=== PATIENT | female | born 1995 | race Hispanic/Latino ===

== ENCOUNTER 2017-10-26 23:00 | Emergency (ER) | payer OTHER ==
[~2017-10-26] VITALS: Ht 162.6 cm; Wt 56.7 kg
[2017-10-26 23:14] VITALS: BP 113/62
--- NOTE | 2017-10-26 23:24 | ER.PDOC ---
General Chief Complaint: Vaginal Bleed Stated Complaint: <20 WKS PREG,BLEEDING Time seen by MD: 23:23 Source: patient Exam Limitations: no limitations History of Present Illness Initial Comments Bleeding this evening Timing/Duration: this evening Severity/Quality: cramping Location of Pain: abdominal pain Vaginal Bleed: abnormal bleeding LMP (females 10-50): : 2 Para: 1 Test: clinic [facility] [place] History: single partner Associated Symptoms: denies symptoms Allergies: Coded Allergies: No Known Allergies (Unverified , 10/26/17) Past Medical History Medical History: no pertinent history Surgical History: no surgical history LMP (females 10-50): Social History Smoking: non-smoker Alcohol Use: none Drug Use: none Review of Systems Constitutional: no symptoms reported Respiratory: no symptoms reported Cardiovascular: no symptoms reported Gastrointestinal: no symptoms reported Genitourinary: see HPI Musculoskeletal: no symptoms reported All Other Systems: Reviewed and Negative Physical Exam General Appearance: No Apparent Distress, WD/WN EENT: eyes nml inspection, nml ENT inspection, pharynx nml Neck: nml inspection, non-tender Cardiovascular/Respiratory: Regular Rate, Rhythm, No M/R/G, Normal Peripheral Pulses, No JVD, Normal Breath Sounds, No Respiratory Distress Abdomen: Normal Bowel Sounds, Soft, No Organomegaly, No Pulsatile Mass, Tenderness (lower abdomen) Back: nml inspection Extremities: Normal Range of Motion, Non-Tender, Normal Inspection, No Pedal Edema, No Calf Tenderness, Normal Capillary Refill Neurologic/Psychiatric: laborer brush clearing II-XII NML as Tested, No Motor/Sensory Deficits, Alert, Normal Mood/Affect, Oriented x 3 Skin: Normal Color, Warm/Dry Lymphatic: No Adenopathy Results/Orders Results/Orders Laboratory Tests Test 10/26/17 23:25 10/26/17 23:35 White Blood Count 9.1 10^3/uL (4.5-11.0) Red Blood Count 4.38 10^6/uL (4.00-5.20) Hemoglobin 12.0 g/dL (12.0-15.0) Hematocrit 36.1 % (36.0-46.0) Mean Corpuscular Volume 82.4 fL (78-100) Mean Corpuscular Hemoglobin 27.4 pg (26-34) Mean Corpuscular Hemoglobin Concent 33.2 g/dL (33-37) Red Cell Distribution Width 15.1 % (11.5-14.5) Platelet Count 159 10^3/uL (150-400) Mean Platelet Volume 12.1 fL (7.8-11.0) Neutrophils (%) (Auto) 59.3 % (41.0-85.0) Lymphocytes (%) (Auto) 32.3 % (24.0-44.0) Monocytes (%) (Auto) 7.1 % (5.0-12.0) Neutrophils # (Auto) 5.4 10^3/uL (1.8-7.7) Lymphocytes # (Auto) 2.9 10^3/uL (1.0-4.8) Monocytes # (Auto) 0.6 10^3/uL (0.3-0.8) Absolute Immature Granulocyte (auto 0.01 10^3 u/L (0-2) Eosinophils % 1.1 % (0.0-5.0) Basophils % 0.1 % (0.0-0.2) Basophils # 0.0 10^3/uL (0.0-0.1) Eosinophil Count 0.1 10^3/uL (0.0-0.2) Prothrombin Time 9.6 SEC (9.8-11.9) Prothrombin Time INR (Non-Therap) 1.0 Activated Partial Thromboplast Time 26.2 SEC (24.67-30.72) Sodium Level 139 mmol/L (132-145) Potassium Level 3.5 mmol/L (3.6-5.2) Chloride Level 104.0 mmol/L (96-109) Carbon Dioxide Level 23.7 mmol/L (20.0-32) Anion Gap 14.8 Blood Urea Nitrogen 7 mg/dL (7-18) Creatinine 0.50 mg/dL (0.59-1.40) Estimated GFR () 188.5 (>/=60) BUN/Creatinine Ratio 14.0 Glucose Level 90 mg/dL (70-110) Calcium Level 8.7 mg/dL (8.4-10.5) Total Bilirubin 0.1 mg/dL (0.2-1.0) Aspartate Amino Transf (AST/SGOT) 7 U/L (0-35) Alanine Aminotransferase (ALT/SGPT) 21 U/L (12-78) Alkaline Phosphatase 57 U/L (50-136) Total Protein 6.5 g/dL (6.4-8.2) Albumin 3.1 g/dL (3.4-5.0) Globulin 3.4 Human Chorionic Gonadotropin, Quant 73890 mIU/mL Percent Immature Gran (Cell Imm) 0.10 % (0.00-0.50) Urine Collection Type CCMS Urine Color STRAW (YELLOW) Urine Appearance SLIGHTLY HAZY (CLEAR) Urine Bilirubin NEGATIVE MG/DL (NEGATIVE) Urine Ketones NEGATIVE (NEGATIVE) Urine Specific [place] 1.005 (1.005-1.035) Urine pH 7 (5.0-6.0) Urine Protein NEGATIVE (NEGATIVE) Urine Urobilinogen NORMAL (NEGATIVE) Urine Nitrate NEGATIVE (NEGATIVE) Urine Leukocyte Esterase 500/uL 2+ (NEGATIVE) Urine Blood 25 1+ (NEGATIVE) Urine RBC 0-2 RBC/HPF (NONE SEEN) Urine WBC 10-25 WBC/HPF (0-2) Urine Squamous Epithelial Cells MODERATE #/HPF (FEW) Urine Bacteria RARE (NONE SEEN) Urine Yeast RARE Urine Glucose NORMAL (NEGATIVE) Progress Progress Patient told me that bleeding stopped EKG/XRAY/CT/US Utrasound Comments: Single live intrauterine of 15 weeks and 3 days Departure Time of Disposition: 02:14 Disposition: 01 HOME, SELF-CARE Impression: Primary Impression: Vaginal bleeding before 22 weeks gestation Additional Impression: UTI (urinary tract infection) Condition: Stable Referrals: BARRIE SALAZAR [employer] (PCP) PRIMARY CARE PROVIDER Additional Instructions: Pelvic rest Bed rest Macrobid [facility] Duration or Time Spent with Pa: 2 hours Problem Qualifiers Additional Impression: UTI (urinary tract infection) Urinary tract infection type: site unspecified Hematuria presence: with hematuria Qualified Codes: N39.0 - Urinary tract infection, site not specified ; R31.9 - Hematuria, unspecified EDGAR TEJEDA MD Oct 26, 2017 23:24
[2017-10-26 23:31] LABS: BASOPHIL % 0.1 % (0.0-0.2); EOSINOPHIL # 0.1 10^3/uL (0.0-0.2); EOSINOPHIL % 1.1 % (0.0-5.0); LYMPHOCYTES # 2.9 10^3/uL (1.0-4.8); LYMPHOCYTES % 32.3 % (24.0-44.0); MEAN CELL HGB 27.4 pg (26-34); MEAN CELL HGB CONCENTRATION 33.2 g/dL (33-37); MEAN CORP VOLUME 82.4 fL (78-100); MEAN PLATELET VOLUME 12.1 fL (7.8-11.0); MONOCYTES # 0.6 10^3/uL (0.3-0.8); MONOCYTES % 7.1 % (5.0-12.0); NEUTROPHIL # 5.4 10^3/uL (1.8-7.7); NEUTROPHILS % 59.3 % (41.0-85.0); RED CELL DISTRIBUTION WIDTH 15.1 % (11.5-14.5); WHITE BLOOD CELL 9.1 10^3/uL (4.5-11.0)
[2017-10-26 23:53] LABS: APPEARANCE,URINE SLIGHTLY HAZY (CLEAR); BILIRUBIN,URINE NEGATIVE (NEGATIVE); UA COLOR STRAW (YELLOW); UROBILINOGEN,URINE NORMAL (NEGATIVE)
[2017-10-26 23:55] LABS: YEAST,URINE RARE
[2017-10-27 00:09] LABS: CALCIUM 8.7 mg/dL (8.4-10.5); CARBON DIOXIDE 23.7 mmol/L (20.0-32)
--- NOTE | 2017-10-27 00:20 | NUR ---
TONES TONES DETECTED. RUNNING 162-168.
--- NOTE | 2017-10-27 00:51 | NUR ---
US PT TO US AT THIS TIME.
--- NOTE | 2017-10-27 02:02 | DIREP ---
PROCEDURE:US OB LIMITED COMPARISON:None. INDICATIONS:Bleeding in with cramping TECHNIQUE: Transabdominal sonography of the gravid uterus was performed FINDINGS: ESTIMATED WEIGHT:127.04 g HEART RATE:163.76 1/min COMPOSITE ULTRASOUND AGE:15 weeks 3 days CEPHALIC INDEX:73.45 HC/AC:1.13 FL/AC:17.03 FL/HC:15.01 FL/BPD:58.06 ABD CIRCUMFERENCE:9.99 cm, 16 weeks, 0 days BIPARIETAL DIAMETER:2.93 cm, 15 weeks, 2 days HEAD CIRCUMFERENCE:11.33 cm, 15 weeks, 4 days FEMUR LENGTH:1.70 cm, 15 weeks, 0 days OCCIPITAL-FRONTAL DIAMETER:3.99 cm CERVIX LENGTH:3.41 cm POSITION:Breech PLACENTA:Posterior without evidence for previa Survey anatomic evaluation was not performed. CONCLUSION: 1. Single, live, intrauterine gestation with estimated sonographic age of 15 weeks 3 days and MARY of 04/17/2018. The cervix is closed. Dictated by: Elie Lowe MD on 10/27/2017 at 01:58 AM
[2017-10-27] MEDS ORDERED: ROCEPHIN IM IM STA (02:16)
[2017-10-27] MEDS ORDERED: ROCEPHIN ONE (02:22)
[2017-10-27] MEDS ORDERED: LIDOCAINE 1% VIAL ONE (02:22)
[2017-10-27 02:38] VITALS: BP_SYST 113; BP_SYST 115; BP_DIAS 62; BP_DIAS 78
== END 2017-10-27 02:40 | disposition home or self-care (01) ==
LOC: ER 23:00
DX: O46.92 Antepartum hemorrhage, unspecified, second trimester (principal); O23.42 Unspecified infection of urinary tract in pregnancy, second trimester; Z3A.15 15 weeks gestation of pregnancy
CPT/HCPCS: 36415; 76805; 80053; 81000; 84702; 85025; 85610; 85730; 87086; 96372; 99285; J0696; J2001

== ENCOUNTER → 2017-11-20 | Outpatient (CLI) | payer OTHER ==
[2017-11-20 15:16] LABS: BASOPHIL % 0.2 % (0.0-0.2); EOSINOPHIL # 0.1 10^3/uL (0.0-0.2); EOSINOPHIL % 0.7 % (0.0-5.0); HEMOGLOBIN 12.5 g/dL (12.0-15.0); LYMPHOCYTES # 1.9 10^3/uL (1.0-4.8); LYMPHOCYTES % 18.6 % (24.0-44.0); MEAN CELL HGB 27.9 pg (26-34); MEAN CELL HGB CONCENTRATION 32.8 g/dL (33-37); MEAN PLATELET VOLUME 12.5 fL (7.8-11.0); MONOCYTES # 0.6 10^3/uL (0.3-0.8); MONOCYTES % 6.1 % (5.0-12.0); NEUTROPHIL # 7.4 10^3/uL (1.8-7.7); NEUTROPHILS % 74.2 % (41.0-85.0); RED CELL DISTRIBUTION WIDTH 15.1 % (11.5-14.5)
== END | disposition home or self-care (01) ==
LOC: LAB 14:50 → EDSTATUS 16:07
PROVIDERS: ATTEND Nurse Practitioner Women's Health
DX: Z34.82 Encounter for supervision of other normal pregnancy, second trimester (principal); Z3A.18 18 weeks gestation of pregnancy
CPT/HCPCS: 36415; 85025; 86318; 86592; 86762; 86885; 86900; 87086

== ENCOUNTER 2018-01-06 16:19 | Observation (INO) | payer OTHER ==
[~2018-01-06] VITALS: Ht 152.4 cm; Wt 58.1 kg
[2018-01-06] MEDS ORDERED: LACTATED RINGERS 2,000 ML ONE (17:05)
[2018-01-06 17:48] LABS: BILIRUBIN,URINE NEGATIVE (NEGATIVE); UROBILINOGEN,URINE NORMAL (NEGATIVE)
[2018-01-06 18:00] LABS: APPEARANCE,URINE CLOUDY (CLEAR); UA COLOR YELLOW (YELLOW)
[2018-01-06] MEDS ORDERED: LACTATED RINGERS 1,000 ML IV SCH (18:00)
[2018-01-06 20:12] VITALS: BP 99/58
[2018-01-06] MEDS ORDERED: PREN1TAB59 PO (20:16)
== END 2018-01-06 20:20 | disposition home or self-care (01) ==
LOC: ATP 16:19
PROVIDERS: ADMIT Hospitalist; ATTEND Hospitalist
DX: O62.9 Abnormality of forces of labor, unspecified (principal); O26.892 Other specified pregnancy related conditions, second trimester; R10.9 Unspecified abdominal pain; Z3A.27 27 weeks gestation of pregnancy
CPT/HCPCS: 59025; 80307; 81000; 84112; 87086; G0378 ×4; J7120

== ENCOUNTER → 2018-02-25 | Outpatient (CLI) | payer OTHER ==
[~2018-02-25] MED LIST: PREN1TAB59 PO
--- NOTE | 2018-02-25 17:33 | DIREP ---
PROCEDURE:OBSTETRICAL ULTRASOUND, 2nd AND 3rd TRIMESTER TECHNIQUE:Transabdominal ultrasound of the pelvic contents was performed. COMPARISON:[facility], , US OB 2 3TRI DETAILED TRANSABD, 11/20/2017, 04:24 PM. [facility], , US OB LIMITED, 10/27/2017, 00:44 AM. [facility], , US OB 1ST TRI TRANS ABD, 09/26/2017, 02:57 PM. INDICATIONS:SIZE LESS THAN DATES, ADALID, ESTIMATE GROWTH WEIGHT TECHNIQUE: Transabdominal sonography of the gravid uterus was performed FINDINGS: NUMBER:Sandy. POSITION:Cephalic AMNIOTIC FLUID VOLUME:LVP - 3.5 cm PLACENTA:Fundal, with no evidence of placenta previa. CERVIX:Limited transabdominal assessment. HEART RATE:132 bpm BIPARIETAL DIAMETER:8.6 cm (35 W 1 D), 67.5 percentile HEAD CIRCUMFERENCE:30.9 cm (34 W 0 D), 27.2 percentile ABD CIRCUMFERENCE:28.5 cm (32 W 4 D), 15.0 percentile FEMUR LENGTH:6.7 cm (34 W 1 D), 50.3 percentile ESTIMATED WEIGHT:2204 gm (4 lb, 14oz), 48.6 percentile ULTRASOUND GA:34 W 1 D ULTRASOUND MARY:April 07, 2018 CLINICAL GA: 34 W 0 D CLINICAL MARY: April 08, 2018 Survey anatomic evaluation was not performed. CONCLUSION: 1. Single live intrauterine with appropriate interval growth. 2. No anomalies detected on today's examination. 3. biometrics suggest a gestational age of approximately 34 W 1 D, with an Estimated Weight (EFW) of 2204 gm (4 lb, 14oz). Dictated by: LANETTE Physician on 02/25/2018 at 04:51 PM ac
== END | disposition home or self-care (01) ==
LOC: RAD 15:57
PROVIDERS: ATTEND Nurse Practitioner Women's Health
DX: Z34.83 Encounter for supervision of other normal pregnancy, third trimester (principal); Z3A.34 34 weeks gestation of pregnancy
CPT/HCPCS: 76816

== ENCOUNTER → 2018-03-12 | Outpatient (CLI) | payer OTHER | END | disposition home or self-care (01) | LOC: LAB 14:51 | PROVIDERS: ATTEND Nurse Practitioner Women's Health | DX: O23.10 Infections of bladder in pregnancy, unspecified trimester (principal); Z3A.00 Weeks of gestation of pregnancy not specified | CPT/HCPCS: 87086 ==

== ENCOUNTER 2018-03-23 15:32 | Observation (INO) | payer OTHER ==
[~2018-03-23] VITALS: Ht 156.2 cm; Wt 60.3 kg
[2018-03-23 16:05] LABS: BILIRUBIN,URINE NEGATIVE (NEGATIVE); UROBILINOGEN,URINE NORMAL (NEGATIVE)
[2018-03-23 16:07] LABS: APPEARANCE,URINE CLEAR (CLEAR); UA COLOR COLORLESS (YELLOW)
[2018-03-23 18:10] VITALS: BP 125/62
== END 2018-03-23 18:03 | disposition home or self-care (01) ==
LOC: ATP 15:32 → EDPENDDISTM 18:03
PROVIDERS: ADMIT Obstetrics & Gynecology; ATTEND Obstetrics & Gynecology
DX: O62.9 Abnormality of forces of labor, unspecified (principal); O26.893 Other specified pregnancy related conditions, third trimester; N00-N99 Diseases of the genitourinary system; R10.2 Pelvic and perineal pain; Z3A.37 37 weeks gestation of pregnancy
CPT/HCPCS: 59025; 81000; 84112; 87086; G0378 ×3

== ENCOUNTER 2018-04-08 07:56 | Inpatient (IN) | payer OTHER ==
[~2018-04-08] VITALS: Ht 154.9 cm; Wt 61.2 kg
--- NOTE | 2018-04-08 08:33 | PCM.HP ---
OB - Chief Complaint & HPI Date of Admission: Date of Admission: Apr 08, 2018 at 07:56 Diagnosis Term intrauterine Chief Complaint/History : 2 Para: 1 EDC: Apr 08, 2018 EGA: 40w0d Reason for admission: induction of labor Indication for induction: post dates Admission Nurse Assessment Rev: Yes OB - History Past Family/Social History * Past Medical, Surgical, Family and Obstetric Histories reviewed from chart. Blood Type: O+ Rubella: immune RPR/VDRL: Negative GBS Status: Negative HBsAG: Negative OB - Admission Exam Physical Exam HEENT: Fontanelles Normal, Nasal Mucosa Normal, Eyes non-injected, Oropharynx Normal, PERRLA, Moist Membranes Lungs: Clear, Equal Abdomen: Gravid, Non tender, Soft Extremities: Normal Reflexes: Normal Cervical Dilatation: 1cm Effacement: 25% Station: -3 Heart Rate: 130's Accelerations: Accelerations Present Decelerations: No Decelerations Short Term Variability: Present Penitentiary Variability: Average (6-25) Contractions on Admission: None Presentation: Vertex OB - Assessment/Plan Assessment Assessment: induction of labor Plan Induction Method: per Pitocin Protocol ARGELIA RUTLEDGE MD Apr 08, 2018 08:33
[2018-04-08] MEDS ORDERED: ZOFRAN IV PRN (09:00)
[2018-04-08] MEDS ORDERED: D5LR 1000ML 1,000 ML IV SCH ×2 (09:00)
[2018-04-08] MEDS ORDERED: BICITRA PO ONE (09:00)
[2018-04-08] MEDS ORDERED: PHENERGAN 25 MG in HNS 50ML 50 ML IV PRN (09:00)
[2018-04-08] MEDS ORDERED: LACTATED RINGERS 1,000 ML IV SCH (09:00)
[2018-04-08] MEDS ORDERED: PHENERGAN IV PRN (09:00)
[2018-04-08] MEDS ORDERED: LIDOCAINE 1% VIAL SQ PRN (09:00)
[2018-04-08] MEDS ORDERED: DEMEROL IV PRN (09:00)
[2018-04-08 09:02] LABS: HEMOGLOBIN 13.9 g/dL (12.0-15.0); MEAN CELL HGB 29.4 pg (26-34); MEAN CELL HGB CONCENTRATION 33.7 g/dL (33-37); MEAN CORP VOLUME 87.5 fL (78-100); MEAN PLATELET VOLUME 13.1 fL (7.8-11.0); RED CELL DISTRIBUTION WIDTH 13.6 % (11.5-14.5); WHITE BLOOD CELL 9.1 10^3/uL (4.5-11.0)
[2018-04-08] MEDS: LACTATED RINGERS 1,000 ML IV SCH ×3 (09:34→19:13)
[2018-04-08] MEDS: LR/PITOCIN 500 ML IV SCH ×2 (09:34→20:12)
[2018-04-08] MEDS ORDERED: PHENERGAN ONE (15:04)
[2018-04-08] MEDS ORDERED: DEMEROL ONE (15:05)
[2018-04-08] MEDS ORDERED: NAROPIN 0.2% 100 ML BAG 100 ML ONE ×2 (16:34→17:00)
[2018-04-08] MEDS ORDERED: LACTATED RINGERS 1,000 ML ONE ×2 (16:34→17:37)
[2018-04-08] MEDS ORDERED: SENSORCAINE-MPF 0.25% VIAL ONE (16:59)
[2018-04-08] MEDS ORDERED: SUBLIMAZE ONE (17:00)
--- NOTE | 2018-04-08 20:34 | PRM.DELNOT ---
Delivery Summary Delivery: Spont. Vaginal Delivery, Spon/Man Extract Placent (spontaneous) EBL: 400 Repair: 2 Degree (left labial laceration was also repaired) Scores: 8/9 Sex of : Female Weight (Grams): 3293 Presentation: KARLI Assessment/Plan Assessment/Plan 22yo s/p uncomplicated vaginal delivery. -Begin routine care ARGELIA RUTLEDGE MD Apr 08, 2018 20:34
[2018-04-08] MEDS ORDERED: LANOLIN HYDROUS TP PRN (21:00)
[2018-04-08] MEDS ORDERED: TUCKS TP PRN (21:00)
[2018-04-08] MEDS ORDERED: MYLANTA PO PRN (21:00)
[2018-04-08] MEDS ORDERED: LR/PITOCIN 500 ML IV SCH ×2 (21:00)
[2018-04-08] MEDS ORDERED: DERMOPLAST SPRAY TP PRN (21:00)
[2018-04-08] MEDS ORDERED: NORCO 5MG PO PRN ×2 (21:00)
[2018-04-08] MEDS ORDERED: TYLENOL PO PRN (21:00)
[2018-04-08] MEDS: MOTRIN PO PRN (22:22)
[2018-04-08] MEDS: COLACE PO SCH (22:22)
[2018-04-09 05:13] LABS: BASOPHIL % 0.2 % (0.0-0.2); EOSINOPHIL # 0.1 10^3/uL (0.0-0.2); HEMOGLOBIN 11.2 g/dL (12.0-15.0); LYMPHOCYTES # 2.8 10^3/uL (1.0-4.8); LYMPHOCYTES % 26.4 % (24.0-44.0); MEAN CELL HGB 30.3 pg (26-34); MEAN CELL HGB CONCENTRATION 34.1 g/dL (33-37); MEAN CORP VOLUME 88.6 fL (78-100); MEAN PLATELET VOLUME 13.4 fL (7.8-11.0); MONOCYTES # 0.9 10^3/uL (0.3-0.8); MONOCYTES % 8.3 % (5.0-12.0); NEUTROPHIL # 6.8 10^3/uL (1.8-7.7); NEUTROPHILS % 63.9 % (41.0-85.0); RED CELL DISTRIBUTION WIDTH 13.2 % (11.5-14.5); WHITE BLOOD CELL 10.6 10^3/uL (4.5-11.0)
--- NOTE | 2018-04-09 08:27 | PRM.PN ---
Subjective/Objective S/P: (22yo PPD1 s/p ) General: No Complaints Chest: Clear Heart: RRR Abdomen: Uterus Firm/Non-Tender incision: N/A Urine Output: Adequate Extremities: Neg Edema/Neg Homans Vital Signs Vital Signs 03/23/18 18:10 Pulse 72 LAB RESULTS Laboratory Tests 04/08/18 08:52: White Blood Count 9.1, Red Blood Count 4.72, Hemoglobin 13.9, Hematocrit 41.3, Mean Corpuscular Volume 87.5, Mean Corpuscular Hemoglobin 29.4, Mean Corpuscular Hemoglobin Concent 33.7, Red Cell Distribution Width 13.6, Platelet Count 119L, Mean Platelet Volume 13.1H, Hepatitis B Surface Antigen Negative, HIV-1 Antibody NON-REACTIVE, HIV-2 Antibody NON-REACTIVE 04/09/18 04:27: White Blood Count 10.6, Red Blood Count 3.70L, Hemoglobin 11.2L, Hematocrit 32.8L, Mean Corpuscular Volume 88.6, Mean Corpuscular Hemoglobin 30.3, Mean Corpuscular Hemoglobin Concent 34.1, Red Cell Distribution Width 13.2, Platelet Count 120L, Mean Platelet Volume 13.4H, Neutrophils (%) (Auto) 63.9, Lymphocytes (%) (Auto) 26.4, Monocytes (%) (Auto) 8.3, Neutrophils # (Auto) 6.8 , Lymphocytes # (Auto) 2.8, Monocytes # (Auto) 0.9H, Absolute Immature Granulocyte (auto 0.02, Eosinophils % 1.0, Basophils % 0.2, Basophils # 0.0, Eosinophil Count 0.1, Percent Immature Gran (Cell Imm) 0.20 Assessment/Plan Assessment/Plan 22yo PPD1 s/p , doing well. -Will continue routine care -Possible discharge home this afternoon, will discuss with patient ARGELIA RUTLEDGE MD Apr 09, 2018 08:27
[2018-04-09] MEDS ORDERED: MOTRIN ONE ×2 (13:55→20:52)
[2018-04-09] MEDS: MOTRIN PO PRN ×2 (14:00→20:59)
[2018-04-09] MEDS ORDERED: COLACE PO ONE (20:53)
[2018-04-09] MEDS: COLACE PO SCH (20:58)
[2018-04-10] MEDS ORDERED: MOTRIN ONE (09:23)
[2018-04-10] MEDS: MOTRIN PO PRN (09:30)
--- NOTE | 2018-04-10 09:54 | PRM.PN ---
Subjective/Objective S/P: General: No Complaints Chest: Clear Heart: RRR Abdomen: Uterus Firm/Non-Tender incision: N/A Urine Output: Adequate Extremities: Neg Edema/Neg Homans Vital Signs Vital Signs 03/23/18 18:10 Pulse 72 Assessment/Plan Assessment/Plan 22yo PPD2 s/p , doing well. She meets criteria for discharge home. ARGELIA RUTLEDGE MD Apr 10, 2018 09:54
[2018-04-10] MEDS ORDERED: IBUP-598 PO (09:55)
--- NOTE | 2018-04-10 09:57 | PRM.DC ---
OB Discharge Summary Discharge Summary Discharge Diagnosis: Status Post Vitals Vital Signs Date Time Temp Pulse Resp B/P (MAP) Pulse Ox O2 Delivery O2 Flow Rate FiO2 03/23/18 18:10 72 Allergies Coded Allergies Type Severity Reaction Last Updated Verified No Known Allergies 10/26/17 No Complications: No Complications Medications: Motrin Discharge Disposition: Stable Discharge Instructions: Pelvic Rest x 6 Weeks, Clinic F/U 1-2 Weeks, Regular Diet, Regular Activity, Meds as Prescribed, Call MD for Problems ARGELIA RUTLEDGE MD Apr 10, 2018 09:57
[2018-04-10] MEDS ORDERED: LANOLIN HYDROUS TP ONE (10:28)
== END 2018-04-10 10:30 | disposition home or self-care (01) | DRG 775 ==
LOC: LND 07:56
PROVIDERS: ADMIT Obstetrics & Gynecology; ATTEND Obstetrics & Gynecology
PROC: 10E0XZZ Delivery of Products of Conception, External Approach (ICD-10-PCS; principal; 2018-04-08)
PROC: 0KQM0ZZ Repair Perineum Muscle, Open Approach (ICD-10-PCS; 2018-04-08)
PROC: 0UQMXZZ Repair Vulva, External Approach (ICD-10-PCS; 2018-04-08)
PROC: 3E033VJ Introduction of Other Hormone into Peripheral Vein, Percutaneous Approach (ICD-10-PCS; 2018-04-08)
PROC: 3E0R3BZ Introduction of Anesthetic Agent into Spinal Canal, Percutaneous Approach (ICD-10-PCS; 2018-04-08)
PROC: 00HU33Z Insertion of Infusion Device into Spinal Canal, Percutaneous Approach (ICD-10-PCS; 2018-04-08)
DX: O69.81X0 Labor and delivery complicated by cord around neck, without compression, not applicable or unspecified (principal); O70.1 Second degree perineal laceration during delivery; Z37.0 Single live birth; Z3A.40 40 weeks gestation of pregnancy
CPT/HCPCS: 36415; 59025; 59400; 85025; 85027; 86318; 86900; J2175; J2550; J2590; J3010; J3490; J7120

== ENCOUNTER 2020-12-07 23:21 | Emergency (ER) | payer BC, MEDICAID, OTHER ==
[~2020-12-07] VITALS: Ht 162.6 cm; Wt 61.2 kg
[~2020-12-07 23:21] MED LIST changes: +IBUP-598 PO
--- NOTE | 2020-12-07 23:22 | NUR ---
ARRIVAL PT ARRIVED IN POV WITH SO. C/O THROAT PAIN AND 14 WEEK . 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 PT HOLDING THROAT REPORTS PAIN 8/10. ERP AWARE
[2020-12-07 23:39] VITALS: BP 123/82
[2020-12-07 23:45] VITALS: BP 123/82
[2020-12-07] MEDS ORDERED: PREDNISONE PO STA (23:54)
[2020-12-07] MEDS ORDERED: BICILLIN L-A IM STA (23:54)
[2020-12-07] MEDS ORDERED: PREDNISONE ONE (23:57)
[2020-12-07] MEDS ORDERED: BICILLIN L-A IM ONE (23:58)
[2020-12-08] MEDS ORDERED: ZOFRAN ODT ONE (00:07)
[2020-12-08] MEDS ORDERED: ZOFRAN ODT SL STA (00:08)
--- NOTE | 2020-12-08 00:13 | ER.PDOC ---
General Chief Complaint: Sore Throat Stated Complaint: VOMITING, SORE THROAT Time seen by MD: 00:06 Source: patient Exam Limitations: no limitations History of Present Illness Initial Comments Throat and headache since yesterday. Patient told me that she is 14 weeks . No fever or chills. No cough or congestion. Timing/Duration: gradual Associated Symptoms: mod sore throat Severity: moderate Allergies: Coded Allergies: No Known Allergies (Unverified , 10/26/17) Home Meds Active Scripts Ibuprofen (Ibu) 800 Mg Tablet, 800 MG PO Q6HR PRN for CRAMPING/PAIN for 30 Days, #30 TABLET 1 Refill Prov:ARGELIA RUTLEDGE MD 04/10/18 Reported Medications Vits W-Ca,Fe,Fa(<1MG) ( VITAMINS) 1 Each Tablet, 1 EACH PO DAILY24, TABLET 01/06/18 Past Medical History Medical History: no pertinent history Surgical History: no surgical history Family History Significant Family History: no pertinent family hx Social History Smoking: non-smoker Alcohol Use: none Drug Use: none Constitutional: no symptoms reported Throat: see HPI Respiratory: no symptoms reported Cardiovascular: no symptoms reported Gastrointestinal: no symptoms reported Musculoskeletal: no symptoms reported All Other Systems: Reviewed and Negative Physical Exam General Appearance: alert, no distress Head/Neck: head nml inspection, neck nml inspection, trachea midline, thyroid nml, cervical lymphadenopathy Eyes: eyes nml inspection, PERRL, no nystagmus Mouth: lips, gums nml, no drooling, no thrush, membranes nml Throat: pharyngeal erythema Ears/Nose: nml inspection Respiratory: no resp. distress, lungs clear CVS: reg. rate & rhythm, heart sounds nml Abdomen: non-tender, no organomegaly Extremities: non-tender, ROM nml Skin Exam: Normal Color, Warm/Dry NEURO/PSYCH: oriented X3, mood/effect nml Results/Orders Results/Orders Orders - EDGAR TEJEDA MD Penicillin G Benzathine (Bicillin L-A) (12/07/20 23:54) Prednisone (Prednisone) (12/07/20 23:54) Prednisone (Prednisone) (12/07/20 23:57) Penicillin G Benzathine (Bicillin L-A) (12/07/20 23:58) Vital Signs Date Time Temp Pulse Resp B/P (MAP) Pulse Ox O2 Delivery O2 Flow Rate FiO2 12/07/20 23:45 99.0 88 16 123/82 (96) 98 Room Air 12/07/20 23:39 99.0 88 16 12/07/20 23:39 99.0 88 16 123/82 (96) 98 Room Air 12/07/20 23:39 99.0 88 16 98 Progress Progress Patient treated empirically with IV antibiotics based on [facility]'s criteria. ER DEPART Departure Time of Disposition: 00:10 Disposition: 01 HOME, SELF-CARE Impression: Primary Impression: Sore throat Additional Impression: Nausea and vomiting during prior to 22 weeks gestation Condition: Stable Referrals: EDWIN HUGHES MD (PCP) PRIMARY CARE PROVIDER Additional Instructions: Prednisone Zofran ODT Tylenol Salt with warm water gargles 3 times a day Follow-up with your PCP or OB Provider in 5 to 7 days Return to ED if worsening or concerns Duration or Time Spent with Pa: 10 min EDGAR TEJEDA MD Dec 08, 2020 00:13
--- NOTE | 2020-12-08 00:31 | NUR ---
DISCHARGE DC INSTRUCTIONS GIVEN TO PT/SO. RX GIVEN TO PT/SO W/INSTRUCTIONS. PT VERBALIZED UNDERSTANDING. DICUSSED THE NEED TO FOLLOW UP WITH PCP/OB NEEDED AND TO RETURN TO ER IF SYMPTOMS WORSEN. VITALS OBTAINED, WNL. PT A & O X3, RR REGULAR, SPEACH CLEAR, UNLABORED. NAD NOTED. PT AMBULATED TO POV W/DIFFICULTY.
== END 2020-12-08 00:31 | disposition home or self-care (01) ==
LOC: ER 23:21
DX: O21.9 Vomiting of pregnancy, unspecified (principal); O26.892 Other specified pregnancy related conditions, second trimester; J02.9 Acute pharyngitis, unspecified; Z3A.14 14 weeks gestation of pregnancy
CPT/HCPCS: 96372; 99284; J0561; J7512